=== PATIENT | male | born 1950 | race Caucasian/White ===

== ENCOUNTER 2016-10-04 00:03 | Emergency (ER) | payer MEDICARE, OTHER ==
[~2016-10-04 00:03] MED LIST: AMLODIPINE BESY10 MG PO; CEPHALEXIN500 M1 PO; DULOXETINE60 MG PO; FLOMAX0.4 MG PO; FLONASE ALLERG9.9 ML NS; KETOROLAC TROME10 MG PO; KETOROLAC10 MG PO; LEVOTHYROXINE PO; LISINOPRIL10 MG PO; PERCOCET 325 MG1 TA2 PO; PERCOCET 7.5/321 TA1 PO; PREDNISONE20 M1 PO; SEPTRA DS 800 M1 TA1 PO; SERTRALINE HYD100 MG PO; SINGULAIR10 MG PO; TESTOSTERONE 50 MG/ML IM; TRAZADONE HYDR100 MG; ULTRAM50 MG PO; VIBRAMYCIN HYC100 MG PO; WELLBUTRIN SR150 MG PO; ZOLOFT 100MG100 MG PO
== END 2016-10-04 02:49 | disposition home or self-care (01) ==
LOC: ED 00:03
DX: S06.5X0A Traumatic subdural hemorrhage without loss of consciousness, initial encounter (principal); J93.83 Other pneumothorax; W17.89XA Other fall from one level to another, initial encounter; Y92.018 Other place in single-family (private) house as the place of occurrence of the external cause
CPT/HCPCS: J3010; L0150

== ENCOUNTER 2016-10-12 01:35 | Emergency (ER) | payer MEDICARE, OTHER ==
[2016-10-12] MEDS ORDERED: OXYCODONE PO (01:51)
[2016-10-12 04:17] VITALS: BP 176/97
== END 2016-10-12 04:20 | disposition home or self-care (01) ==
LOC: ED 01:35
DX: S22.41XA Multiple fractures of ribs, right side, initial encounter for closed fracture (principal); J93.9 Pneumothorax, unspecified; N20.1 Calculus of ureter; N20.0 Calculus of kidney; K59.00 Constipation, unspecified; W19.XXXA Unspecified fall, initial encounter; Y92.018 Other place in single-family (private) house as the place of occurrence of the external cause; Z87.891 Personal history of nicotine dependence
CPT/HCPCS: J1885; J2270; Q9967

== ENCOUNTER 2016-10-31 18:14 | Emergency (ER) | payer MEDICARE, OTHER ==
[~2016-10-31 18:14] MED LIST changes: +OXYCODONE PO
[2016-10-31 19:49] VITALS: BP 149/97
== END 2016-10-31 19:49 | disposition home or self-care (01) ==
LOC: ED 18:14
DX: S43.492A Other sprain of left shoulder joint, initial encounter (principal); X50.0XXA Overexertion from strenuous movement or load, initial encounter; F17.210 Nicotine dependence, cigarettes, uncomplicated
CPT/HCPCS: A4565; J1885

== ENCOUNTER → 2018-07-15 | Outpatient (CLI) | payer MEDICARE, OTHER | LOC: RAD 13:59 | DX: R05 Cough (principal); R06.02 Shortness of breath ==

== ENCOUNTER → 2018-07-21 | Outpatient (CLI) | payer MEDICARE, OTHER ==
[2018-07-21 16:48] LABS: HEMATOCRIT 36.5 % (42.0-52.0); HEMOGLOBIN 12.1 g/dL (13.5-18.0); LYMPH# 1.5 (1.50-4.00); MEAN CELL VOLUME 98 fl (78-100); MEAN CORPUSCULAR HEMOGLOBIN 32 pg (27-31); MEAN CORPUSCULAR HGB CONC 33 g/dL (33-37); MEAN PLATELET VOLUME 9.8 fl (7.4-10.4); PLATELET COUNT 438 K/mm3 (130-400); RED BLOOD COUNT 3.73 M/mm3 (4.20-5.60); RED CELL DISTRIBUTION WIDTH 12.7 % (11.5-14.5); WHITE BLOOD COUNT 11.3 K/mm3 (4.8-10.8)
[2018-07-21 16:51] LABS: EOS # 0.8 (0.04-0.40); EOS % 6.8 % (0.0-4.0)
[2018-07-21 16:58] LABS: ALBUMIN 3.8 g/dL (3.5-5.0); CALCIUM 8.8 mg/dL (8.4-10.2); POTASSIUM 4.5 mmol/L (3.6-5.0); TOTAL BILIRUBIN 0.7 mg/dL (0.2-1.3)
[2018-07-21 17:50] LABS: ERYTHROCYTE SEDIMENTATION RATE 64 mm/hr (0-20)
== END ==
LOC: LAB 16:18
PROVIDERS: Internal Medicine
DX: R91.8 Other nonspecific abnormal finding of lung field (principal); R06.02 Shortness of breath

== ENCOUNTER 2018-07-25 15:08 | Emergency (ER) | payer MEDICARE, OTHER ==
[2018-07-25 15:08] VITALS: BP 00/00
== END 2018-07-25 17:45 | disposition expired ==
LOC: ED 15:08
DX: I46.9 Cardiac arrest, cause unspecified (principal); Z79.899 Other long term (current) drug therapy; Z87.820 Personal history of traumatic brain injury; Z82.49 Family history of ischemic heart disease and other diseases of the circulatory system
CPT/HCPCS: J0171

== ENCOUNTER → 2018-07-25 | Outpatient (CLI) | payer MEDICARE, OTHER | LOC: RAD 10:02 | DX: J43.9 Emphysema, unspecified (principal); J90 Pleural effusion, not elsewhere classified ==